=== PATIENT | female | born 1985 | race Two or more races ===

== ENCOUNTER → 2019-09-11 | Outpatient (CLI) | payer MEDICAID | END | disposition home or self-care (01) | LOC: RAD 11:14 | PROVIDERS: ATTEND Family Medicine | DX: R51 Headache (principal) | CPT/HCPCS: 70450 ==

== ENCOUNTER 2020-02-24 14:00 | Emergency (ER) | payer BC, MEDICAID ==
[~2020-02-24] VITALS: Ht 162.6 cm; Wt 84.0 kg
[2020-02-24] MEDS ORDERED: DEXAMETHASONE 4 MG TABLET PO ONE (14:30)
--- NOTE | 2020-02-24 15:47 | NUR ---
MAIL ORDER SORTER; PT TO ROOM FROM [facility]HA[facility]
[2020-02-24] MEDS ORDERED: DEXAMETHASONE 4 MG TABLET ONE (15:56)
[2020-02-24 16:54] LABS: BASOPHILS % (AUTO) 0 % (0-1); EOSINOPHILS % (AUTO) 0 % (1-7); LYMPHOCYTES % (AUTO) 29 % (22-44); MEAN CORPUSCULAR HEMOGLOBIN 30.5 pg (27.0-34.8); MEAN CORPUSCULAR HGB CONC 33.9 g/dL (32.4-35.8); MEAN PLATELET VOLUME 8.2 fL (7.4-10.4); MONOCYTES % (AUTO) 9 % (2-9); NEUTROPHILS % (AUTO) 61 % (42-75); PLATELET COUNT 176 x10^3/uL (130-400); RED BLOOD COUNT 4.68 x10^6/uL (3.82-5.3); RED CELL DISTRIBUTION WIDTH 13.4 % (9.6-15.2)
[2020-02-24 17:03] LABS: MD NO
[2020-02-24 17:05] LABS: ALANINE AMINOTRANSFERASE 55 U/L (12-78); ALBUMIN 3.6 g/dL (3.4-5.0); ANION GAP 5 mmol/L (5-15); CALCIUM 8.3 mg/dL (8.5-10.1); CHLORIDE 107 mmol/L (98-107); CREATININE 0.73 mg/dL (0.55-1.02)
[2020-02-24 17:07] LABS: ALKALINE PHOSPHATASE 110 U/L (45-117); BILIRUBIN,TOTAL 0.3 mg/dL (0.2-1.0); TOTAL PROTEIN 6.9 g/dL (6.4-8.2)
[2020-02-24 17:11] LABS: HCG UR SG 1.039 (1.003-1.030); MICROSCOPIC NOT IND
[2020-02-24] MEDS ORDERED: KETOROLAC 30 MG/1 ML ONE (17:27)
[2020-02-24] MEDS ORDERED: KETOROLAC 30 MG/1 ML IM ONE (17:30)
[2020-02-24 17:31] VITALS: BP 101/65
== END 2020-02-24 17:35 | disposition home or self-care (01) ==
LOC: ED 14:05
DX: U07.1 COVID-19 (principal); R07.89 Other chest pain; B34.9 Viral infection, unspecified; J06.9 Acute upper respiratory infection, unspecified; M79.10 Myalgia, unspecified site; R06.02 Shortness of breath; R09.81 Nasal congestion
CPT/HCPCS: 71045; 80053; 81003; 81025; 85025; 87635; 93005; 96372; 99285; J1885